=== PATIENT | male | born 1955 | race Caucasian/White ===

== ENCOUNTER 2016-07-09 13:57 | Inpatient (IN) | payer OTHER ==
[2016-07-09 14:20] LABS: Hematocrit 48 % (42-52); Hemoglobin 16.1 g/dl (14.0-18.0); Mean Corpuscular HGB Conc 34 g/dl (31-36); Mean Corpuscular Hemoglobin 30 pg (27-31); Mean Corpuscular Volume 90 fL (80-94); Mean Platelet Volume 9 um3 (7.4-10.4); Red Blood Count 5.34 10^6/ul (4.0-5.4); Red Cell Distribution Width 13 % (10.5-15); White Blood Count 8.5 10^3/ul (3.5-10.8)
[2016-07-09 14:40] LABS: Albumin 3.9 g/dL (3.2-5.2); BUN/Creatinine Ratio 19.6 (8-20); Calcium 9.5 mg/dL (8.6-10.3); EGFR African American 107.9 (>60); EGFR Non-African American 83.9 (>60); Globulin 3.7 g/dL (2-4); HDL Cholesterol 42.9 mg/dL; Potassium 4.8 mmol/L (3.5-5.0); Total Bilirubin 0.5 mg/dL (0.2-1.0); Total Protein 7.6 g/dL (6.4-8.9)
[2016-07-09] MEDS ORDERED: Iohexol 350* (CONTRAST) 500 ML MDV IV ONE (14:51)
[2016-07-09 15:13] LABS: Urine Bilirubin Negative (Negative); Urine Glucose Negative (Negative); Urine Nitrite Negative (Negative)
[2016-07-09 15:28] LABS: Benzodiazepine Urine Screen None Detected (None Detect)
--- NOTE | 2016-07-09 17:00 | RAD ---
INDICATION: Aphasia COMPARISON: CT brain same date TECHNIQUE: Axial source images were acquired with coronal and sagittal reconstructions. CT angiographic technique was utilized with injection of 80 mL Omnipaque 350. FINDINGS: Aortic arch: There are no CT angiogram abnormalities of the arch or the great vessels arising from the arch. Right carotid: The internal carotid artery, carotid bifurcation, extracranial portions of the internal carotid artery, carotid artery at the skull base, carotid siphon, and carotid termination appear normal. Left carotid: There is left internal carotid artery occlusion with reconstitution at the carotid termination. Right middle and anterior cerebral arteries: There are no CT angiographic abnormalities of the middle or anterior cerebral arteries. Left middle and anterior cerebral arteries: There are no CT angiographic abnormalities of the middle or anterior cerebral arteries Right vertebral: The reconstituted middle cerebral artery is diminutive in size and there is probable disease in the M3 segment supplying insular cortex. Left vertebral: The CT angiographic appearance of the vertebral artery is normal. Basilar artery: The basilar artery and basilar tip appear normal. Posterior cerebral arteries: The distal distribution of the right and left posterior cerebral arteries is normal. [place]: The CT angiographic appearance of the [place] is normal. Source images show no evidence of mass or adenopathy within the neck. There are no focal parenchymal abnormalities or abnormal areas of enhancement. IMPRESSION: 1. 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 2. Reconstituted left carotid termination. The distal distribution of the left MCA is attenuated and there is likely M3 segment disease with possible developing nonhemorrhagic infarct of the insular cortex. CPT II Codes: 3100F RS
--- NOTE | 2016-07-09 17:02 | RAD ---
INDICATION: Aphasia COMPARISON: None TECHNIQUE: Noncontrast axial source images were acquired from the skull base to the vertex. FINDINGS: Ventricles/sulci: The ventricles and cisterns are normal in size and configuration for age. Brain parenchyma: There is apparent subtle decreased attenuation in the anterior distribution left middle cerebral artery which may be related to an early nonhemorrhagic infarct.. Intracranial hemorrhage:None. Extra-axial spaces: There are no abnormal extra axial fluid collections or evidence of extra-axial mass. Calvarium: There is no calvarial fracture or other calvarial abnormality. Scalp: There is no evidence of scalp or extracalvarial soft tissue abnormality. Paranasal sinuses/mastoid: The paranasal sinuses and mastoid air cells are clear. Other: None. IMPRESSION: POSSIBLE EARLY NONHEMORRHAGIC LEFT MCA INFARCT WHICH MAY INVOLVE THE INSULAR CORTEX
[2016-07-09] MEDS ORDERED: Aspirin EC TAB* 325 MG PO ONE (17:12)
[2016-07-09] MEDS ORDERED: Aspirin EC TAB* 325 MG ONE (17:14)
--- NOTE | 2016-07-09 17:35 | ED ---
Hal Kaur Michael, scribed for Jason Spann MD on 07/09/16 at 1424 . Altered Mental Status - HPI Summary HPI Summary: 61 y/o male was transferred to the ED from [facility]. The pt presents with AMS that started this morning at 0530. The pt's friend called the ambulance because he had difficulty ambulating and slurred speech. The CT-Brain from [place] was negative. The HPI is limited from pt due to level 5 caveat-AMS - History Of Current Complaint Chief Complaint: EDAltMentalStatus Stated Complaint: POSSIBLE CVA Time Seen by Provider: 07/09/16 14:06 Hx Obtained From: EMS, Medical Records Hx From Patient Unobtainable Due To: Altered Mental Status Onset/Duration: Suddenly Timing: Constant, Lasting Hours Severity Initially: Moderate Severity Currently: Moderate Aggravating Factor(s): Unknown Alleviating Factor(s): Nothing Associated Signs And Symptoms: Negative: Negative - ambulation problems. Slurred speech. - Allergies/Home Medications Home Medications: Home Medications Albuterol/Ipratropium RESP(NF) [Combivent Respimat(NF)] 2 puff INH BID 07/09/16 [History Confirmed 07/09/16] Lisinopril TAB* [Prinivil TAB*] 20 mg PO DAILY 07/09/16 [History Confirmed 07/09] Naproxen TAB* [Naprosyn 250 mg TAB*] 500 mg PO BID 07/09/16 [History Confirmed 07/09/16] PMH/Surg Hx/FS Hx/Imm Hx Previously Healthy: No - unable to obtain level 5 caveat Infectious Disease History: Unable to Obtain/Confirm Infectious Disease History: Denies: Traveled Outside the [place] in Last 30 Days - Family History Known Family History: Positive: Unknown Family History: unable to obtain-AMS Review of Systems Neurological: Other - ambulation problems-unbalanced Positive: Slurred Speech All Other Systems Reviewed And Are Negative: No Physical Exam Triage Information Reviewed: Yes Vital Signs On Initial Exam: Initial Vitals Temp Pulse Resp BP Pulse Ox 97.8 F 64 22 154/78 96 07/09/16 14:03 07/09/16 14:03 07/09/16 14:03 07/09/16 14:03 07/09/16 14:03 Vital Signs Reviewed: Yes Appearance: Positive: No Pain Distress Skin: Positive: Warm, Skin Color Reflects Adequate Perfusion Head/Face: Positive: Normal Head/Face Inspection Eyes: Positive: Normal, EOMI, ANDRE ENT: Positive: Normal ENT inspection Neck: Positive: Supple, Nontender. Negative: Nuchal Rigidity Respiratory/Lung Sounds: Positive: Clear to Auscultation, Breath Sounds Present Cardiovascular: Positive: Normal, RRR. Negative: Murmur Abdomen Description: Positive: Nontender Neurological: Positive: CN Intact II-III, Expressive Aphasia, Slurred Speech Diagnostics - Vital Signs Vital Signs Temp Pulse Resp BP Pulse Ox 07/09/16 14:03 97.8 F 64 22 154/78 96 - Laboratory Lab Results: Lab Results 07/09/16 07/09/16 07/09/16 Range/Units 14:13 14:13 14:13 WBC 8.5 (3.5-10.8) 10^3/ul RBC 5.34 (4.0-5.4) 10^6/ul Hgb 16.1 (14.0-18.0) g/dl Hct 48 (42-52) % MCV 90 (80-94) fL MCH 30 (27-31) pg MCHC 34 (31-36) g/dl RDW 13 (10.5-15) % Plt Count 233 (150-450) 10^3/ul MPV 9 (7.4-10.4) um3 Neut % (Auto) 61.3 (38-83) % Lymph % (Auto) 26.6 (25-47) % [place] % (Auto) 7.8 (1-9) % Eos % (Auto) 3.1 (0-6) % Baso % (Auto) 1.2 (0-2) % Absolute Neuts (auto) 5.2 (1.5-7.7) 10^3/ul Absolute Lymphs (auto) 2.2 (1.0-4.8) 10^3/ul Absolute Monos (auto) 0.7 (0-0.8) 10^3/ul Absolute Eos (auto) 0.3 (0-0.6) 10^3/ul Absolute Basos (auto) 0.1 (0-0.2) 10^3/ul Absolute Nucleated RBC 0.01 10^3/ul Nucleated RBC % 0.1 INR (Anticoag Therapy) 0.90 (0.89-1.11) APTT 32.4 (26.0-36.3) seconds Sodium 133 (133-145) mmol/L Potassium 4.8 (3.5-5.0) mmol/L Chloride 103 (101-111) mmol/L Carbon Dioxide 27 (22-32) mmol/L Anion Gap 3 (2-11) mmol/L BUN 18 (6-24) mg/dL Creatinine 0.92 (0.67-1.17) mg/dL Est GFR ( Amer) 107.9 (>60) Est GFR (Non-Af Amer) 83.9 (>60) BUN/Creatinine Ratio 19.6 (8-20) Glucose 102 H (70-100) mg/dL Lactic Acid (0.5-2.0) mmol/L Calcium 9.5 (8.6-10.3) mg/dL Total Bilirubin 0.50 (0.2-1.0) mg/dL AST 78 H (13-39) U/L ALT 97 H (7-52) U/L Alkaline Phosphatase 64 (34-104) U/L Troponin I 0.00 (<0.04) ng/mL Total Protein 7.6 (6.4-8.9) g/dL Albumin 3.9 (3.2-5.2) g/dL Globulin 3.7 (2-4) g/dL Albumin/Globulin Ratio 1.1 (1-3) Triglycerides 152 mg/dL Cholesterol 159 mg/dL LDL Cholesterol 86 mg/dL HDL Cholesterol 42.9 mg/dL Blood Type Antibody Screen 07/09/16 07/09/16 Range/Units 14:13 14:13 WBC (3.5-10.8) 10^3/ul RBC (4.0-5.4) 10^6/ul Hgb (14.0-18.0) g/dl Hct (42-52) % MCV (80-94) fL MCH (27-31) pg MCHC (31-36) g/dl RDW (10.5-15) % Plt Count (150-450) 10^3/ul MPV (7.4-10.4) um3 Neut % (Auto) (38-83) % Lymph % (Auto) (25-47) % [place] % (Auto) (1-9) % Eos % (Auto) (0-6) % Baso % (Auto) (0-2) % Absolute Neuts (auto) (1.5-7.7) 10^3/ul Absolute Lymphs (auto) (1.0-4.8) 10^3/ul Absolute Monos (auto) (0-0.8) 10^3/ul Absolute Eos (auto) (0-0.6) 10^3/ul Absolute Basos (auto) (0-0.2) 10^3/ul Absolute Nucleated RBC 10^3/ul Nucleated RBC % INR (Anticoag Therapy) (0.89-1.11) APTT (26.0-36.3) seconds Sodium (133-145) mmol/L Potassium (3.5-5.0) mmol/L Chloride (101-111) mmol/L Carbon Dioxide (22-32) mmol/L Anion Gap (2-11) mmol/L BUN (6-24) mg/dL Creatinine (0.67-1.17) mg/dL Est GFR ( Amer) (>60) Est GFR (Non-Af Amer) (>60) BUN/Creatinine Ratio (8-20) Glucose (70-100) mg/dL Lactic Acid 0.8 (0.5-2.0) mmol/L Calcium (8.6-10.3) mg/dL Total Bilirubin (0.2-1.0) mg/dL AST (13-39) U/L ALT (7-52) U/L Alkaline Phosphatase (34-104) U/L Troponin I (<0.04) ng/mL Total Protein (6.4-8.9) g/dL Albumin (3.2-5.2) g/dL Globulin (2-4) g/dL Albumin/Globulin Ratio (1-3) Triglycerides mg/dL Cholesterol mg/dL LDL Cholesterol mg/dL HDL Cholesterol mg/dL Blood Type O Positive Antibody Screen Pending Result Diagrams: 07/09/16 14:13 07/09/16 14:13 Lab Statement: Any lab studies that have been ordered have been reviewed, and results considered in the medical decision making process. - CT CT Brain CT Interpretation: Positive (See Comments) - POSSIBLE EARLY NONHEMORRHAGIC LEFT MCA INFARCT WHICH MAY INVOLVE THE INSULAR CORTEX CT Interpretation Completed By: Radiologist CTA Head/Neck CT Interpretation: Positive (See Comments) - 1. 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 2. Reconstituted left carotid termination. The distal distribution of the left MCA is attenuated and there is likely M3 segment disease with possible developing nonhemorrhagic infarct of the insular cortex. CT Interpretation Completed By: Radiologist - EKG EK EKG Rhythm: Sinus Rhythm - 61 bpm EKG Interpretation: no STEMI EKG Comparison: No Significant Change Altered Mental Statu Course/Dx - Course Course Of Treatment: Discussed care of patient with Dr. Rust (Neurology) at 1420. Discussed care of patient with Dr. Leone (Hospitalist) at 1507. Pt will be admitted to [facility]. 61 yr old male with CVA aphasia symptoms. Admit to hospital for further management. - Diagnoses Discharge Diagnoses: Aphasia, Altered mental status, CVA (cerebral vascular accident) - Critical Care Time Critical Care Time: 30-74 min - 40 minutes critical care time Discharge - Discharge Plan Condition: Good Disposition: ADMITTED TO [facility] documentation as recorded by the Hal khan Michael accurately reflects the service I personally performed and the decisions made by , Jason Spann MD.
[2016-07-09] MEDS ORDERED: Albuterol/Ipratropium RESP(NF) MDI (Combivent Respimat) INH SCH (21:00)
--- NOTE | 2016-07-09 21:08 | CONS ---
NEUROLOGY CONSULTATION: DATE OF CONSULT: 07/09/16 LOCATION: The patient is in the Emergency Department. REQUESTING PHYSICIAN: Jason Spann MD REASON FOR CONSULT: Probable stroke. HISTORY OF PRESENT ILLNESS: Real Landeros is a 61-year-old man with no prior records available for review at this time, but a probable past history of hypertension who presents as a transfer from [facility] for aphasia. The patient apparently lives with a roommate and was last seen normal at approximately 5:30 this morning. He seemed normal at that time and went back to bed. He then came out of his room sometime later not acting right and "slurring his speech." He was brought to [facility] around 11 a.m. He was noted to have language difficulties at that time and possible left facial weakness. A noncontrast brain CT was negative and he was transferred to [facility] for further evaluation for stroke. On my evaluation, the patient is not able to contribute any history due to his aphasia. The history is obtained from discussion with Dr. Spann and review of available records from [facility]. PAST MEDICAL HISTORY: Largely unknown, but presumed to have hypertension based on his medication list from [facility]. He may also have asthma versus COPD. FAMILY HISTORY: Not obtainable at this time. SOCIAL HISTORY: He rents a room from a friend. His employment status is not known. Records indicate that he is a daily smoker. Records also indicate that he does not use drugs or abuse alcohol. REVIEW OF SYSTEMS: Not obtainable at this time. PHYSICAL EXAM: Vital Signs: Temperature 97.8. Blood pressure initially 154/78 , but most recently 121/68. Heart rate 57 and oxygen saturation 96% on room air. On general examination, he is in mild distress due to not being able to communicate. His heart is in irregular rate and rhythm with no obvious murmurs. The lungs are clear to auscultation anteriorly. There are no obvious carotid bruits. There is no extremity edema or erythema. On neurologic examination, he is fully alert and awake. He has fluent, nonsensical speech. Every so often an intelligible word can be heard, especially profanities. He seemed to state his name one time spontaneously. He was able to follow command to close his eyes, but not able to follow command to make a fist without mimicking. On cranial nerve examination, he has anisocoria with the right pupil being approximately 3 mm and the left approximately 1.5 mm. The right was reactive to 2 mm and the left was not clearly reactive, but was very miotic. His primary gaze with neutral in position without any fixed lateral gaze. He tracked me appropriately throughout the room. He seemed to have decreased blink to threat in the right visual field, but was not able to cooperate with formal visual field testing. He appeared to have a slight downturning of the left corner of his mouth but good activation with grimace. His hearing was intact to voice. The palate elevates symmetrically, but he was unable to protrude his tongue on command or by mimicking. On motor examination , at rest he is noted to have his right foot externally rotated. He indicates that he is right handed by grabbing a pen with the right hand and attempting to write his name. All 4 extremities are antigravity but there seemed to be slight pronator drift in the right upper extremity. He was also unable to supervisor [employer] as well on the left as he was on the right. He responds briskly to noxious stimulation in all 4 extremities. He is not able to cooperate with coordination testing. His toes are downgoing. He was not ambulated in the acute setting. NIH stroke scale is 9. He gets 2 points for LOC questions, 1 point for commands , 2 points for visual gaines, 1 point for facial palsy, 2 points for aphasia and 1 point for dysarthria. DIAGNOSTIC STUDIES/LABORATORY DATA: Reviewed and includes CBC, which was normal , coagulation studies are normal and chemistry panel is notable for a glucose of 102 and elevated AST of 78 and elevated ALT of 97. His troponin is normal. Cholesterol studies show triglycerides 152, total cholesterol 159, LDL 86, and HDL 42.9. IMPRESSION: Real Landeros is a 61-year-old man who presents as a transfer from [facility] with concerns for left hemispheric stroke as evidenced by receptive aphasia as well as possibly some right upper extremity weakness. 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 He is ordered to undergo another CT of the brain as well as CT angiogram of the head and neck. This will be important for determining whether there is any dissection on the left which could explain his Hill syndrome. I do not see in his records from [place] that he received aspirin at [place], so I will request that that be given. He should also undergo MRI of the brain. As long as there is no evidence of a large vessel occlusion, which may require transfer to another facility, he will be admitted to our hospital for stroke workup including monitoring on telemetry, echocardiogram with bubble study, measurement of lipids and hemoglobin A1c and therapy evaluations. As he was last seen normal about 10 hours ago, he is unfortunately not a candidate for interventional procedures in the anterior circulation even if he is identified to have a large vessel occlusion. Similarly, he is not a candidate for TPA, being outside the time window. [id number]/[facility] #: [id number]
[2016-07-09] MEDS: Heparin VIAL(*) 5000 UNITS/ML VIAL (FIVE THOUSAND) SUBCUT SCH (21:56)
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
[2016-07-10] MEDS: Heparin VIAL(*) 5000 UNITS/ML VIAL (FIVE THOUSAND) SUBCUT SCH ×3 (05:32→21:01)
[2016-07-10 06:56] LABS: HDL Cholesterol 42.9 mg/dL
--- NOTE | 2016-07-10 08:46 | PN ---
Subjective Date of Service: 07/10/16 Interval History: ?SVT overnight, no AFib noted on tele. Patient seen this morning. Still with significant aphasia. Indicated that maybe there is some improvement from yesterday. Family History: Unchanged from Admission Social History: Unchanged from Admission Past Medical History: Unchanged from Admission Objective Active Medications: Albuterol/Ipratropium (Combivent Respimat(Nf)) 2 puff INH BID [facility] Aspirin (Aspirin Low Dose Tab*) 81 mg PO DAILY [facility] Heparin Sodium (Porcine) (Heparin Vial(*)) 5,000 units SUBCUT Q8HR [facility] Vital Signs 07/09/16 07/09/16 07/09/16 15:55 16:06 16:08 Temperature Pulse Rate 58 63 Respiratory 17 18 Rate Blood Pressure 158/85 (mmHg) O2 Sat by Pulse 94 96 Oximetry 07/09/16 07/09/16 07/09/16 17:45 20:00 20:10 Temperature 98.7 F 98.1 F Pulse Rate 66 67 Respiratory 18 18 18 Rate Blood Pressure 131/74 147/82 (mmHg) O2 Sat by Pulse 98 96 96 Oximetry 07/09/16 07/10/16 23:48 04:21 Temperature 98.6 F 98.2 F Pulse Rate 68 71 Respiratory 16 16 Rate Blood Pressure 141/80 120/73 (mmHg) O2 Sat by Pulse 96 94 Oximetry Oxygen Devices in Use Now: None Appearance: Middle-aged, M, sitting in bed in mild respiratory distress after returning from the bathroom Eyes: No Scleral Icterus Ears/Nose/Mouth/Throat: - - Dry MM Neck: NL Appearance and Movements; NL JVP Respiratory: Symmetrical Chest Expansion and Respiratory Effort, - - mild tachypnea, no wheezing, prolonged expiratory phase Cardiovascular: NL Sounds; No Murmurs; No JVD, RRR Abdominal: NL Sounds; No Tenderness; No Distention Lymphatic: No Cervical Adenopathy Extremities: No Edema Skin: No Rash or Ulcers Neurological: - - Alert, significant aphasia, difficulty following directions, difficult to assess strength but seems to have some R sided weakness Result Diagrams: 07/09/16 14:13 07/09/16 14:13 Assess/Plan/Problems-Billing Assessment: L MCA infarction in a 61 yo M with hx of HTN, tobacco abuse and recently diagnosed HCV - Patient Problems (1) Acute ischemic left MCA stroke Current Visit: Yes Comment: Appreciate Neruology assistance. Continue ASA 81 mg daily. Holding home BP medications. Echo with bubble study and MRI ordered and pending. Start atorvastatin 80 mg daily. PT/OT/Speech evals. (2) HTN (hypertension) Current Visit: Yes Comment: Holding home Lisinopril (3) COPD (chronic obstructive pulmonary disease) Current Visit: Yes Comment: Albuterol prn (4) Hepatitis C Current Visit: Yes Comment: Reportedly diagnosed recently. Will discuss further with daughter. (5) DVT prophylaxis Current Visit: Yes Comment: HSQ Status and Disposition: Inpatient for CVA
[2016-07-10] MEDS ORDERED: Albuterol HFA INHALER* 8 gm MDI INH PRN (08:48)
[2016-07-10] MEDS: Aspirin Low Dose CHEW TAB* 81 MG PO SCH (09:02)
[2016-07-10] MEDS ORDERED: Acetaminophen TAB* 325 MG ONE (13:33)
[2016-07-10] MEDS: Acetaminophen TAB* 325 MG PO PRN (13:36)
[2016-07-10] MEDS: Atorvastatin* 80 MG TAB PO SCH (17:42)
--- NOTE | 2016-07-11 01:07 | PN ---
NEUROLOGICAL FOLLOWUP: DATE OF VISIT: DATE OF DICTATION: 07/10/16 - ROOM #449 PATIENT OF: Dr. Jasper Leone. HISTORY OF PRESENT ILLNESS: A 61-year-old man seen in followup for his comprehensive aphasia. He remains densely aphasic and is unable to give any history. CURRENT MEDICATIONS: Include: 1. Aspirin 81 mg daily p.o. 2. Lipitor 80 mg daily. 3. Heparin subcu. 4. Ventolin 2 puffs q.4 hours. PHYSICAL EXAMINATION: Temperature 98, pulse of 67, respirations 16, blood pressure 134/78. He is alert and awake, but has no speech. For me, he did make some sounds. He could not follow commands in a coherent way. He would raise his hands when I asked him and pointed to my elbow and asked him what it was and he did not follow one-step commands in any consistent way. Cranial nerves II through XII were intact other than a right facial weakness, upper motor neuron. Strength in his extremities was intact. He also had a pupillary asymmetry that persisted since yesterday with 3 mm on the right and 2 on the left. Reflexes were 1 and equal. Toes were downgoing. Chest: Clear. Cardiovascular: Regular rate and rhythm. Abdomen: Soft, positive bowel sounds. DIAGNOSTIC STUDIES/LAB DATA: He had a normal CBC yesterday, normal INR and PTT. Normal CMP other than AST of 78, ALT of 97. His LDL was 96 and he is on statins. UA was negative. Toxicology was negative. His CT scan showed an early nonhemorrhagic left MCA infarct. His CTA showed chronic occlusion of the left internal carotid bifurcation. IMPRESSION: Mr. Landeros had a left MCA stroke associated with his carotid occlusion. He should continue his antiplatelet and statins. An MRI scan will be obtained sometime within the next week or two, it would be reasonable to repeat the CTA occasionally can recanalize and he could be a surgical candidate if that happens depending on the degree of his stroke but his stroke is a partial MCA stroke clinically and therefore if you recanalize, he would be likely a surgical candidate. Thank you for sharing his case. [id number]/[facility] #: [id number] JULIAN
[2016-07-11] MEDS: Heparin VIAL(*) 5000 UNITS/ML VIAL (FIVE THOUSAND) SUBCUT SCH ×3 (06:03→21:33)
[2016-07-11 06:33] LABS: Albumin 3.6 g/dL (3.2-5.2); BUN/Creatinine Ratio 24.7 (8-20); Calcium 9.1 mg/dL (8.6-10.3); EGFR African American 118.2 (>60); EGFR Non-African American 91.9 (>60); Globulin 3.3 g/dL (2-4); Total Bilirubin 0.8 mg/dL (0.2-1.0); Total Protein 6.9 g/dL (6.4-8.9)
--- NOTE | 2016-07-11 08:32 | PN ---
Subjective Date of Service: 07/11/16 Interval History: Patient seen this morning. Seems to be improving a bit today. Said "good, how are you" when asked how he was doing this morning. Still with difficulty following commands. Family History: Unchanged from Admission Social History: Unchanged from Admission Past Medical History: Unchanged from Admission Objective Active Medications: Acetaminophen (Tylenol Tab*) 650 mg PO Q6H PRN Albuterol (Ventolin Hfa Inhaler*) 2 puff INH Q4H PRN Aspirin (Aspirin Low Dose Tab*) 81 mg PO DAILY [facility] Atorvastatin Calcium (Lipitor*) 80 mg PO 1700 [facility] Heparin Sodium (Porcine) (Heparin Vial(*)) 5,000 units SUBCUT Q8HR [facility] Vital Signs 07/10/16 07/10/16 07/10/16 12:23 15:33 19:54 Temperature 97.8 F 98.2 F 97.8 F Pulse Rate 74 65 76 Respiratory 16 18 20 Rate Blood Pressure 126/77 121/74 135/79 (mmHg) O2 Sat by Pulse 97 95 96 Oximetry 07/10/16 07/11/16 07/11/16 20:00 00:11 03:56 Temperature 97.7 F 97.6 F Pulse Rate 64 79 Respiratory 20 24 16 Rate Blood Pressure 145/71 126/85 (mmHg) O2 Sat by Pulse 96 95 89 Oximetry Oxygen Devices in Use Now: None Appearance: Middle-aged, M, sitting in bed in NAD Eyes: No Scleral Icterus Ears/Nose/Mouth/Throat: Mucous Membranes Moist Neck: NL Appearance and Movements; NL JVP Respiratory: Symmetrical Chest Expansion and Respiratory Effort, Clear to Auscultation Cardiovascular: NL Sounds; No Murmurs; No JVD, RRR Abdominal: NL Sounds; No Tenderness; No Distention Lymphatic: No Cervical Adenopathy Extremities: No Edema Skin: No Rash or Ulcers Neurological: - - Alert, still with significant aphasia but improving, still with difficulty following commands, difficult to adequately test strength Result Diagrams: 07/09/16 14:13 07/11/16 06:10 Assess/Plan/Problems-Billing Assessment: L MCA infarction in a 61 yo M with hx of HTN, tobacco abuse and recently diagnosed HCV - Patient Problems (1) Acute ischemic left MCA stroke Current Visit: Yes Comment: Appreciate Neruology assistance. Continue ASA 81 mg daily. Holding home BP medications. Echo with bubble study and MRI ordered and pending. Continue atorvastatin 80 mg daily. PT/OT/Speech. Should get follow- up CTAs after this admission to evaluate for any recanalization as this would be an indication for surgery. (2) HTN (hypertension) Current Visit: Yes Comment: Holding home Lisinopril (3) COPD (chronic obstructive pulmonary disease) Current Visit: Yes Comment: Albuterol prn (4) Hepatitis C Current Visit: Yes Comment: Has diagnosis of HCV, underwent biopsy recently that showed hepatic fibrosis. Will need follow-up as outpatient. (5) DVT prophylaxis Current Visit: Yes Comment: HSQ Status and Disposition: Inpatient for CVA
[2016-07-11] MEDS: Aspirin Low Dose CHEW TAB* 81 MG PO SCH (09:02)
[2016-07-11] MEDS: Atorvastatin* 80 MG TAB PO SCH (17:29)
[2016-07-11] MEDS: Acetaminophen TAB* 325 MG PO PRN (23:45)
--- NOTE | 2016-07-12 02:13 | PN ---
NEUROLOGICAL FOLLOWUP: DATE OF VISIT: 07/11/16 - ROOM #449 PATIENT OF: Jasper Leone MD HISTORY OF PRESENT ILLNESS: A 61-year-old man seen in followup for his global aphasia. He remains unable to give any history. CURRENT MEDICATIONS: Include: 1. Aspirin 81 mg daily. 2. Lipitor 80 mg daily. 3. Ventolin 2 puffs q.4 hours. PHYSICAL EXAMINATION: Temperature 98.3, pulse of 62, respirations 16, and blood pressure 125/70. He is alert. He notes that he has been okay on occasion , but not in any consistent way as he remains unable to follow one-step commands consistently. Cranial nerves II through XII were normal other than a mild right facial weakness. The strength in extremities is 5/5. Reflexes were 1 and equal. Chest: Clear. Cardiovascular: Regular rate and rhythm. Abdomen : Soft. Positive bowel sounds. DIAGNOSTIC STUDIES/LAB DATA: His MRI scan has not been done. IMPRESSION: Mr. Landeros has a left MCA stroke associated with carotid occlusion. Please let me know when MRI scan is done for my review. He will need intensive speech therapy and will be unable to immediately go back to his former living situation, most likely given his lack of understanding. It would be reasonable for social work to be involved as well. Thank you for sharing his case. [id number]/[facility] #: [id number] JULIAN
[2016-07-12] MEDS: Heparin VIAL(*) 5000 UNITS/ML VIAL (FIVE THOUSAND) SUBCUT SCH ×3 (05:49→21:57)
[2016-07-12 07:02] LABS: Hematocrit 46 % (42-52); Hemoglobin 15.7 g/dl (14.0-18.0); Mean Corpuscular HGB Conc 34 g/dl (31-36); Mean Corpuscular Hemoglobin 31 pg (27-31); Mean Corpuscular Volume 90 fL (80-94); Mean Platelet Volume 9 um3 (7.4-10.4); Red Blood Count 5.09 10^6/ul (4.0-5.4); Red Cell Distribution Width 13 % (10.5-15); White Blood Count 9.1 10^3/ul (3.5-10.8)
[2016-07-12] MEDS: Aspirin Low Dose CHEW TAB* 81 MG PO SCH (10:13)
--- NOTE | 2016-07-12 10:21 | PN ---
Subjective Date of Service: 07/12/16 Interval History: Patient seen this morning. Still with significant aphasia. Maybe a bit more verbal today. Could not tell me his name but said yes when I asked if it was Real after saying no to two other incorrect names. Family History: Unchanged from Admission Social History: Unchanged from Admission Past Medical History: Unchanged from Admission Objective Active Medications: Acetaminophen (Tylenol Tab*) 650 mg PO Q6H PRN PRN Reason: PAIN Last Admin: 07/11/16 23:45 Dose: 650 mg Albuterol (Ventolin Hfa Inhaler*) 2 puff INH Q4H PRN PRN Reason: SOB/WHEEZING Aspirin (Aspirin Low Dose Tab*) 81 mg PO DAILY [facility] Last Admin: 07/12/16 10:13 Dose: 81 mg Atorvastatin Calcium (Lipitor*) 80 mg PO 1700 [facility] Last Admin: 07/11/16 17:29 Dose: 80 mg Heparin Sodium (Porcine) (Heparin Vial(*)) 5,000 units SUBCUT Q8HR [facility] Last Admin: 07/12/16 05:49 Dose: 5,000 units Vital Signs 07/11/16 07/11/16 07/11/16 15:33 19:24 20:00 Temperature 98.8 F 98.7 F Pulse Rate 67 72 Respiratory 18 18 20 Rate Blood Pressure 137/78 139/72 (mmHg) O2 Sat by Pulse 90 96 Oximetry 07/11/16 07/12/16 23:26 03:58 Temperature 98.3 F 98.2 F Pulse Rate 68 62 Respiratory 16 16 Rate Blood Pressure 146/83 125/73 (mmHg) O2 Sat by Pulse 98 96 Oximetry Oxygen Devices in Use Now: None Appearance: Middle-aged, M, laying in bed in NAD Eyes: No Scleral Icterus Ears/Nose/Mouth/Throat: Mucous Membranes Moist Neck: NL Appearance and Movements; NL JVP Respiratory: Symmetrical Chest Expansion and Respiratory Effort, Clear to Auscultation Cardiovascular: NL Sounds; No Murmurs; No JVD, RRR Abdominal: NL Sounds; No Tenderness; No Distention Lymphatic: No Cervical Adenopathy Extremities: No Edema Skin: No Rash or Ulcers Neurological: - - Significant aphasia both receptive and expressive, strength seems intact, difficulty following commands Result Diagrams: 07/12/16 06:42 07/11/16 06:10 Assess/Plan/Problems-Billing Assessment: L MCA infarction in a 61 yo M with hx of HTN, tobacco abuse and recently diagnosed HCV - Patient Problems (1) Acute ischemic left MCA stroke Current Visit: Yes Comment: Appreciate Neruology assistance. Continue ASA 81 mg daily. Holding home BP medications. Echo with bubble study and MRI ordered and pending. Continue atorvastatin 80 mg daily. PT/OT/Speech. Doing well from a physical standpoint however aphasia (receptive and expressive) is significant and he may require rehab. Should get follow-up CTAs after this admission to evaluate for any recanalization as this would be an indication for surgery. (2) HTN (hypertension) Current Visit: Yes Comment: Holding home Lisinopril (3) COPD (chronic obstructive pulmonary disease) Current Visit: Yes Comment: Albuterol prn (4) Hepatitis C Current Visit: Yes Comment: Has diagnosis of HCV, underwent biopsy recently that showed hepatic fibrosis. Will need follow-up as outpatient. (5) DVT prophylaxis Current Visit: Yes Comment: HSQ Status and Disposition: Inpatient for CVA. MRI and echo pending. May need placement.
--- NOTE | 2016-07-12 10:34 | ECHO ---
Patient: NANCY MART [facility] Rec#: [id number] : 1955 Date: 07/12/2016 Age: 61y Height: 187.96 cm / 74.0 in Weight: 99.79 kg / 219.9 lbs Sex: M BSA: 2.26 Room#: [facility] Admit Date#: 07/09/2016 Type: Inpatient Referring: Kristen Urbina NP Reading: Kev Varela MD Census Clerk: Nita GoodRDCS,RDMS Transthoracic Echocardiogram Indication: CVA BP: 125/73 HR: 68 Rhythm: NSR Indications Cerebrovascular Disease Findings History: HTN, COPD, smoker Technical Comments: The study quality is fair. COmpleted at 1000 Left Ventricle: The left ventricular chamber size is normal. Mild concentric left ventricular hypertrophy is observed. Global left ventricular wall motion and contractility are within normal limits. The estimated ejection fraction is 55-60%. Abnormal left ventricular diastolic function is observed. Left Atrium: The left atrial chamber size is normal. Right Ventricle: The right ventricular chamber size and systolic function are within normal limits. Right Atrium: The right atrial cavity size is normal. A patent foramen ovale is demonstrated by agitated contrast. Aortic Valve: The aortic valve is trileaflet. The aortic valve leaflets are mildly thickened. There is no evidence of aortic regurgitation. There is no evidence of aortic stenosis. Mitral Valve: The mitral valve leaflets appear normal. There is no evidence of mitral regurgitation. There is no evidence of mitral stenosis. Tricuspid Valve: The tricuspid valve leaflets are normal. There is trace tricuspid regurgitation. Unable to estimate the right ventricular systolic pressure. Pulmonic Valve: The pulmonic valve structure is not well visualized. Pericardium: There is no significant pericardial effusion. Aorta: The ascending aorta is not well visualized. The aortic arch is not well visualized. The aortic root is normal in size. Pulmonary Artery: The main pulmonary artery is not well visualized. Venous: The inferior vena cava appears normal in size. There is a greater than 50% respiratory change in the inferior vena cava dimension. Contrast: Intravenous agitated saline contrast was used to assess intracardiac shunting. Conclusions Mild concentric left ventricular hypertrophy is observed. Global left ventricular wall motion and contractility are within normal limits. The estimated ejection fraction is 55-60%. The right ventricular chamber size and systolic function are within normal limits. A patent foramen ovale is demonstrated by agitated contrast. There is no evidence of aortic regurgitation. There is no evidence of mitral regurgitation. There is trace tricuspid regurgitation. Unable to estimate the right ventricular systolic pressure. Measurements Name Value Normal Range RVIDd (AP) 2D 2.3 cm (0.9 - 2.6) RAd ISD 4CH 4.1 cm (3.4 - 4.9) RA (A4C)W 4 cm (2.9 - 4.6) IVSd (2D) 1.1 cm (0.6 - 1) LVPWd (2D) 1.2 cm (0.6 - 1) LVIDd (2D) 4.1 cm (3.6 - 5.4) LVIDs (2D) 3.4 cm - LV FS (2D) 18 % (25 - 45) Aortic Annulus 1.9 cm (1.4 - 2.6) Ao root diameter (2D) 3.5 cm (2.1 - 3.5) LA dimension (AP) 2D 2.8 cm (2.3 - 3.8) LAd ISD 4CH 3.5 cm (2.9 - 5.3) LA ISD 4CH W 3.3 cm (2.5 - 4.5) Name Value Normal Range LA ESV SP 4CH (A/L) 31.93 ml - LA ESV SP 2CH (A/L) 35.8 ml - LA ESV BP (A/L) 37.13 ml - LA ESV BP (A/L) index 16 ml/m2 - LA ESV SP 4CH (MOD) 28.76 ml - LA ESV SP 2CH (MOD) 31.96 ml - Name Value Normal Range MV E-wave Vmax 0.7 m/sec - MV deceleration time 243 msec - MV A-wave Vmax 0.6 m/sec - MV E:A ratio 1.1 ratio - LV septal e' Vmax 0.06 m/sec - LV lateral e' Vmax 0.07 m/sec - LV E:e' septal ratio 11 ratio - LV E:e' lateral ratio 10 ratio - Name Value Normal Range AV Vmax 1.3 m/sec - AV VTI 18.4 cm - AV peak gradient 7 mmHg - AV mean gradient 3.9 mmHg - LVOT Vmax 1 m/sec - LVOT VTI 18.7 cm - LVOT peak gradient 4 mmHg - LVOT mean gradient 1.7 mmHg - Name Value Normal Range RAP 8 mmHg - IVC diameter 1.5 cm - Name Value Normal Range PV Vmax 0.8 m/sec - PV peak gradient 2.6 mmHg -
--- NOTE | 2016-07-12 14:14 | RAD ---
HISTORY: Screening for MRI COMPARISONS: None VIEWS: Frontal and lateral views of the cervical, thoracic, and lumbar spine FINDINGS: There is radiopaque material noted in the soft tissues dorsal to the L4 and L5 vertebral bodies. There is post surgical change to L5-S1. Degenerative changes are noted throughout the spine. IMPRESSION: RADIOPAQUE MATERIAL NOTED IN THE SOFT TISSUES DORSAL TO THE L4 AND L5 VERTEBRAL BODIES.
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
[2016-07-12] MEDS: Atorvastatin* 80 MG TAB PO SCH (17:58)
[2016-07-13] MEDS: Heparin VIAL(*) 5000 UNITS/ML VIAL (FIVE THOUSAND) SUBCUT SCH ×2 (06:00→12:33)
[2016-07-13 07:46] VITALS: BP 138/82
[2016-07-13] MEDS: Aspirin Low Dose CHEW TAB* 81 MG PO SCH (08:10)
--- NOTE | 2016-07-14 14:10 | DS ---
DISCHARGE SUMMARY: DATE OF ADMISSION: 07/09/16 DATE OF DISCHARGE: 07/13/16 ADMISSION DIAGNOSES: 1. Aphasia. 2. Hypertension. 3. Elevated liver function tests. DISCHARGE DIAGNOSES: 1. Aphasia. 2. Hypertension. 3. Elevated liver function tests. 4. Left middle cerebral artery cerebrovascular accident. 5. Chronic obstructive pulmonary disease. 6. Hepatitis C. HOSPITAL COURSE: The patient is 61-year-old gentleman who presented to [facility] with a chief complaint of possibly having a CVA. See H and P for further details. The patient was having significant aphasia. The patient had a transthoracic echocardiogram, a CTA of his head, which did show total occlusion of the left carotid artery. In the end, an MRI was not performed because of radiopaque material noted on x-ray. The patient continued to have aphasia throughout his hospital course and was actually more confused when he came in, but this seemed to improve with time. By the date of discharge, the patient was having no physical limitations, but still had significant aphasia. His daughter and son- in-law wanted to take him home and the patient was anxious to go home. They understand that he could still be prone to wandering, but that they are willing to take this responsibility. He will also need to follow up with his PCP and Neurology within the week, and also to have follow CTA of the head and neck to see if the occlusion be cannulated or he may need surgery. The patient was also started on aspirin and Lipitor in addition to his other medications. PHYSICAL EXAMINATION ON THE DATE OF DISCHARGE: Temperature 98.6 degrees, heart rate 70 beats per minute, respiratory rate 16 breaths per minute, pulse ox 97%, blood pressure /82. HEENT: Normocephalic, atraumatic. Pupils equal, round, and reactive to light. Moist mucous membranes. Neck: Supple. No JVD, bruits, palpable thyroid, or lymphadenopathy. Chest is clear to auscultation and percussion bilaterally. Cardiovascular: S1, S2 appreciated. Abdominal Exam: Positive bowel sounds in all 4 quadrants. Soft, nontender, nondistended. Extremities: No cyanosis, clubbing, or edema. Neuro: Alert and oriented x3. Moves all extremities. He has significant aphasia, is unable to articulate, or write any of the thoughts, but seems to have good comprehension. Skin: No distinct rashes. No abnormalities. STUDIES DONE WHILE IN THE HOSPITAL: 1. 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 The distal distribution of the left MCA is attenuated and there is likely M3 segment disease with possible developing non- hemorrhagic infarct of the insular cortex. 2. Brain CT shows possible early non-hemorrhagic left MCA infarct, which may involve the insular cortex. 3. Transthoracic echocardiogram shows mild concentric left ventricular hypertrophy observed. Global left ventricular wall motion and contractility within normal limits. Estimated ejection fraction 55% to 60%. Right ventricular chamber size and systolic function within normal limits. Patent foramen ovale is demonstrated by contrast. There is no evidence of aortic regurg, no evidence of mitral regurg, trace tricuspid regurg. Unable to obtain the right ventricular systolic pressure. DISCHARGE MEDICATIONS: 1. Combivent Respimat 2 puffs inhaled twice daily. 2. Lisinopril 20 mg daily. 3. Lipitor 80 mg daily. 4. Aspirin 81 mg daily. DISCHARGE PLAN: The patient will be discharged home. He is to follow with his PCP and Neurology as an outpatient. He will need a followup CTA of his head and neck in the near future. He should also follow up with Speech Therapy. The patient to return to the ED if symptoms recur or become worrisome. TIME SPENT: Over 50 minutes was spent on this discharge, more than 35 minutes of which was spent in direct [id number] contact with the patient in evaluation , physical exam, counseling, and coordination of care. CC: Dr. Devan Soto; Armand Higgins * [id number]/[facility] #: [id number] [facility]
== END 2016-07-13 13:48 | disposition home or self-care (01) | DRG 45 ==
LOC: ED 13:57 → MEDTELE 15:08
PROVIDERS: ADMIT Hospitalist; ATTEND Internal Medicine
DX: I63.512 Cerebral infarction due to unspecified occlusion or stenosis of left middle cerebral artery (principal); I63.232 Cerebral infarction due to unspecified occlusion or stenosis of left carotid arteries; R47.01 Aphasia; I10 Essential (primary) hypertension; J44.9 Chronic obstructive pulmonary disease, unspecified; B19.20 Unspecified viral hepatitis C without hepatic coma; F17.210 Nicotine dependence, cigarettes, uncomplicated; R94.5 Abnormal results of liver function studies; Z79.899 Other long term (current) drug therapy; Z84.89 Family history of other specified conditions
CPT/HCPCS: 36415; 70450; 70496; 70498; 72082; 74020; 80053; 80061; 80307; 81003; 83036; 83605; 84484; 85025; 85610; 85730; 86850; 86900; 86901; 93005; 93306; 99406; A9270-GY; G8996-GN-CH; G8997-GN-CH; G8998-GN-CH; J1644; Q9967